=== PATIENT | female | born 1945 | race Caucasian/White ===

== ENCOUNTER 2023-01-02 14:38 | Outpatient (CLI) | payer MEDICARE, BC, SELFPAY ==
--- NOTE | 2023-01-02 15:20 | CRLHL7_ITS ---
For Patients: As a result of the Cures Act, medical imaging exams and procedure reports are released immediately into your electronic medical record. You may view this report before your referring provider. If you have questions, please contact your health care provider. BILATERAL SCREENING MAMMOGRAM WITH COMPUTER-AIDED DETECTION AND TOMOSYNTHESIS TECHNIQUE: CC and MLO views were obtained. These mammographic images have been obtained using full-field digital technique. These mammographic images were interpreted with the benefit of computer-aided detection. Breast tomosynthesis was used in this interpretation. COMPARISON FILM: 09/18/21, 08/21/20, 07/30/19. FINDINGS: There are scattered areas of fibroglandular density. IMPRESSION: There is no radiographic evidence for malignancy. ASSESSMENT: BI-RADS Category 2: Benign RECOMMENDATION: Routine screening mammogram in 1 year. A lay language report of this examination will be provided to the patient. EVA GILLIS M.D. Diagnostic/Nuclear Medicine Radiologist [email or web address] RAVEN:[email or web address] Transcribed: 01/03/2023, 1:[address]/Dictated by: Eva Gillis MD @ 01/03/2023 8:43:00 AM (Electronically Signed)
== END 2023-01-02 14:39 | disposition home or self-care (01) ==
LOC: MAMMO 14:43
PROVIDERS: PCP Family Medicine; Visit Provider Family Medicine
DX: Z12.31 Encounter for screening mammogram for malignant neoplasm of breast (principal)
CPT/HCPCS: 77063; 77067

== ENCOUNTER 2023-05-27 06:06 | Day surgery (SDC) | payer MEDICARE, BC, SELFPAY ==
[2023-05-27] VITALS (9 sets, daily range): BP systolic 136–177; BP diastolic 70–80; PULSE 58–96; RESP 16; TEMP 36.2–36.5; O2SAT 96–99; BMI 31.9
--- NOTE | 2023-05-27 06:28 | SUR.PREOP ---
OPERATIVE HAND WIPED WITH CHG WIPES IN PRE-OP.
--- NOTE | 2023-05-27 07:41 | PM.ORPRC ---
Procedure Note Date of procedure: 05/27/23 Procedure: Preop diagnosis: Left hand middle finger stenosing tenosynovitis Postop diagnosis: Left hand middle finger stenosing tenosynovitis Procedure: Left hand middle finger A1 jennifer release Anesthesia: Local Surgeon: Frankie Randolph MD orthopedic physician assistant: CHERIE Wright EBL: 0 mL Complications: None Specimens: None Drains: None Preoperative antibiotics: None Indications: The patient has a history of left upper extremity middle finger painful catching and locking. Despite appropriate non operative management including flexor tendon sheath corticosteroid injections they continue to have symptoms. Operative intervention was recommended. The risks, benefits alternatives and expected outcomes were discussed in detail. These included but were not limited to: Infection, bleeding, injury to blood vessel or nerve, venous thromboembolism. All questions were answered to their satisfaction. The patient was placed supine on the operating room table. Local anesthesia was established with 0.5% Marcaine without epinephrine and 2% lidocaine without epinephrine. The hand was prepped and draped in usual sterile fashion. The limb was elevated the forearm pneumatic tourniquet was inflated to 250 mm of mercury. A transverse incision was made centered over the base of the middle finger between the proximal and distal palmar creases. Subcutaneous dissection was taken through the palmar fascia to the flexor tendons with the tenotomy scissors. The A1 jennifer was released with the 15 blade and a tenotomy scissors. Active flexion and extension of the finger shows no catching or locking, no bowstringing of the flexor tendons. The wound was closed with interrupted nylon sutures. A dry dressing was applied the tourniquet was released. Sponge and needle counts were correct x 2. The patient tolerated the procedure well, there were no apparent complications. They were sent to same day surgery in satisfactory condition. Plan: Use of the hand as tolerates. Discontinue the intraoperative dressing on postoperative day 3 and may get the wound wet as tolerates. Follow up in the office in 2 weeks for a wound check and suture removal.
== END 2023-05-27 08:14 | disposition home or self-care (01) ==
PROVIDERS: PCP Family Medicine; Visit Provider Orthopaedic Surgery
PROC: (CPT 26055; principal; 2023-05-27 07:15)
DX: M65.332 Trigger finger, left middle finger (principal); M65.842 Other synovitis and tenosynovitis, left hand
CPT/HCPCS: 26055

== ENCOUNTER 2024-03-31 11:04 | Outpatient (CLI) | payer MEDICARE, BC, SELFPAY ==
--- NOTE | 2024-03-31 10:45 | CRLHL7_ITS ---
For Patients: As a result of the Century Cures Act, medical imaging exams and procedure reports are released immediately into your electronic medical record. You may view this report before your referring provider. If you have questions, please contact your health care provider. BILATERAL SCREENING MAMMOGRAM WITH COMPUTER-AIDED DETECTION AND TOMOSYNTHESIS TECHNIQUE: CC and MLO views were obtained. These mammographic images have been obtained using full-field digital technique. These mammographic images were interpreted with the benefit of computer-aided detection. Breast Tomosynthesis was used in this interpretation. COMPARISON FILM: 01/02/23, 09/18/21, 08/21/20. FINDINGS: There are scattered areas of fibroglandular density IMPRESSION: There is no radiographic evidence for malignancy. ASSESSMENT: BI-RADS Category 1: Negative RECOMMENDATION: Routine screening mammogram in 1 year. A lay language report of this examination will be provided to the patient. Neptali Fagan M.D. Diagnostic Radiologist [email or web address] ELKIN/Dictated by: Neptali Fagan MD @ 03/31/2024 12:56:00 PM (Electronically Signed)
--- OUTSIDE RECORDS SUMMARY | 2024-03-31 11:07 | XMS_ITS | Clinical Summary ---
Author Organization [facility] Address [place], [place] [address] Care Team Providers Care Office Technologist Name Role Phone Virgil Pineda MD Primary Care Provider Allergies Active Allergy Reactions Criticality Noted Date Comments Hydrochlorothiazide Angioedema High 06/03/2018 Clopidogrel Edema 12/29/2023 Lip swelling Medications Medication Sig Dispensed Refills Start Date End Date Status vitamin a-vitamin c-vitamin e-minerals (VISION FORMULA) tablet Take 1 tablet by mouth once daily. Active cholecalciferol (VITAMIN D3) 2,000 unit capsule Take 1 capsule by mouth once daily. 0 02/25/2014 Active acetaminophen (TYLENOL EXTRA STRGTH) 500 mg tabletIndications :Acute maxillary sinusitis, recurrence not specified Take 1 tablet by mouth. Max acetaminophen dose: 4000mg in 24 hrs. 0 11/10/2016 Active nystatin powder (MYCOSTATIN) powderIndications :Moniliasis, cutaneous Apply 1 Strip topically to affected area(s) 3 times daily. 60 g 2 06/28/2019 Active CPAPIndications:O bstructive sleep apnea She needs CPAP supplies, not a machine. Needs mask, tubing, etc. 1 Each 08/01/2021 Active hydrocortisone 1 % creamIndications: Lip swelling Apply topically to affected area(s) 2 times daily. To apply externally on the outer lip twice daily 35 g 1 01/03/2022 Active meclizine (ANTIVERT) 25 mg tabletIndications :Vestibular dysfunction, unspecified laterality Take 1 Tablet (25 mg) by mouth every 8 hours if needed (vestibular dysfunction). 30 tablet. 1 03/24/2022 Active metroNIDAZOLE 0.75 % cream APPLY TO ENTIRE FACE 1-2X DAILY 12/30/2022 Active triamcinolone (ARISTOCORT; KENALOG) 0.1 % cream APPLY 1-2X DAILY TO AFFECTED AREA UNDER THE BREASTS AND ABDOMINAL FOLD. APPLY FOR 2 WEEKS THEN TAKE 2 WEEKS OFF. REPEAT NEEDED FOR FLARES 12/30/2022 Active atenoloL (TENORMIN) 50 mg tabletIndications :Essential hypertension Take 1 Tablet (50 mg) by mouth once daily. 90 Tablet 3 12/29/2023 Active furosemide (LASIX) 20 mg tabletIndications :Essential hypertension Take 1 Tablet (20 mg) by mouth every morning. 90 Tablet 3 12/29/2023 Active simvastatin (ZOCOR) 40 mg tabletIndications :Hypercholesterol emia Take 1 Tablet (40 mg) by mouth at bedtime. 90 Tablet 3 12/29/2023 Active losartan (COZAAR) 50 mg tabletIndications :Essential hypertension Take 1 Tablet (50 mg) by mouth once daily. 90 Tablet 3 12/29/2023 Active aspirin chewable 81 mg chewable tablet Chew 1 Tablet (81 mg) by mouth once daily with a meal. 03/08/2024 Active aspirin enteric coated (ECOTRIN) 325 mg tablet Take 1 tablet by mouth once daily with a meal. 0 11/17/2017 4 Discontinu ed(*Med complete/R egimen complete/L evel of care change) Active Problems Problem Noted Date Diagnosed Date History of transient ischemic attack (TIA) 03/08 Overview: 11/14/2017 Bilateral lower extremity edema 03/08/2024 Overview: lasix daily Hearing loss, bilateral 03/08/2024 Overview: wearing hearing aids ACP (advance care planning) 11/17/2019 Overview: Health Care Directive completed and scanned. See document dated 11/08/2019. Sleep apnea 12/09/2011 Overview: wearing CPAP Hypertension 12/09/2011 Obesity 12/09/2011 Chest pain 12/09/2011 Overview: -Stress echocardiogram 10/30/2011 Exercised 5 minutes and 55 seconds, stopped secondary to chest pressure No evidence of ischemia, post exercise images EF 65% Hyperlipidemia 10/22/2011 GERD (gastroesophageal reflux disease) 1 Knee joint replacement by other means 05/01/2007 half-way (current) use of anticoagulants 2006 Resolved Problems Problem Noted Date Diagnosed Date Resolved Date Headache(784.0) 12/25/2006 03/08/2024 Encounter for screening colonoscopy 03/08/2024 Encounters Date Type Department Care Team Description 03/08/2024 8:20 AM CDT Preop Visit [address] [id number] Valencia Wing NP Pre-Op Exam 03/08/2024 Travel from Last 3 Months Immunizations Name Administration Dates Next Due Influenza Virus, Unspecified 08/03/2023 Influenza, High-dose Inactivated 08/16/2019,08/03 Influenza, High-dose Quadrivalent Inactivated Influenza, Inactivated AIIV4 (Age 65+ Years) Preserv Free 08/12/2022,08/23/2021 Influenza, Inactivated IIV3 (Age 65+ Years) Preserv Free 08/25/2018 Pneumococcal Poly,23-Valent (Pneumovax) 05/09/20 17 Pneumococcal conj 13-Valent (Prevnar 13) 011 Td (Age >=7 Years) 05/06/1996 Td, Preservative Free (age >= 7 Years) 7 Tdap 02/23/2019 Family History Medical History Relation Name Comments No Known Problems Brother 1 No Known Problems Brother 2 No Known Problems Brother 3 No Known Problems Daughter Other Father ALZHEIMER'S No Known Problems Half-Brother No Known Problems Half-Sister No Known Problems Maternal Aunt Cancer Maternal Grandfather STOMACH Cancer Maternal Grandmother MELANOM A No Known Problems Maternal Uncle Cancer Mother LEIOMTOSARCOMA No Known Problems Other Heart Disease Paternal Aunt Cancer Paternal Grandfather SKIN Cancer Paternal Grandmother GALLBLA DDER No Known Problems Paternal Uncle No Known Problems Sister 1 No Known Problems Sister 2 No Known Problems Sister 3 No Known Problems Sister 4 Cancer Sister 5 THYROID, UTERIN E No Known Problems Son 1 No Known Problems Son 2 Cancer-breast No Family History Relation Name Status Comments Brother 1 Alive Brother 2 Alive Brother 3 Alive Daughter Alive Father Half-Brother Half-Sister Maternal Aunt Maternal Grandfather Maternal Grandmother Maternal Uncle Mother Other Paternal Aunt Paternal Grandfather Paternal Grandmother Paternal Uncle Sister 1 Alive Sister 2 Alive Sister 3 Alive Sister 4 Alive Sister 5 Son 1 Alive Son 2 Alive Social History Tobacco Use Types Packs/Day Years Used Date Smoking Tobacco: Never Passive Smoke Exposure: Yes Smokeless Tobacco: Never Tobacco Cessation:Counseling Given: Not Answered Comments: smokes Alcohol Use Standard Drinks/Week Comments Not Currently 0 (1 standard drink = 0.6 oz pur e alcohol) PHQ-2 Answer Date Recorded PHQ-2 TOTAL SCORE 0 12/29/2023 Social Connections Answer Date Recorded Frequency of Communication with Friends and Fami ly 0 09/13/2023 Financial Resource Strain Answer Date R ecorded Difficulty of Paying Living Expenses 3 09/13/2023 Difficulty of Paying Living Expenses Not on file 09/13/2023 Food Insecurity Answer Date Recorded Worried About Running Out of Food in the Last Ye ar 1 09/13/2023 Transportation Needs Answer Date Record ed Lack of Transportation (Medical) 1 09/13/2023 Housing Stability Answer Date Recorded Unable to Pay for Housing in the Last Year 1 09/13/2023 Sex and Gender Information Value Date Recorded Sex Assigned at Not on file Gender Identity Not on file Sexual Orientation Not on file Obstetrics History Para Term AB IAB SAB Ectopic Multiple Livin g Live Births 4 3 1 1 3 Date Outcome GA Total Labor Labor/2nd/3rd Weight Sex Delivery Anes PTL Natalie A1 A5 Name Cl in SAB Para Para Para Last Filed Vital Signs Vital Sign Reading Time Taken Comments Blood Pressure 126/68 03/08/2024 8:27 AM CDT Pulse 66 03/08/2024 8:27 AM CDT Temperature 36.3 ??C (97.3 ??F) 09/13/2023 1 0:47 AM DRAWER IN STITCH BONDING MACHINE Respiratory Rate 16 09/13/2023 10:4 7 AM DRAWER IN STITCH BONDING MACHINE Oxygen Saturation 98% 12/29/2023 8:50 AM DRAWER IN STITCH BONDING MACHINE Inhaled Oxygen Concentration - - Weight 89.7 kg (197 lb 11.2 oz) 03/08/2024 8:27 AM CDT Height 163.8 cm (5' 4.5) 12/29/2023 8:50 AM DRAWER IN STITCH BONDING MACHINE Body Mass Index 33.41 12/29/2023 8:50 AM DRAWER IN STITCH BONDING MACHINE Plan of Treatment Health Maintenance Due Date Last Done Comments Zoster (shingles) series for age 50+ (1 of 2) 1996 COVID-19 vaccine series ( season) 2023 10/08/2021, 01/13/2021, 12/23/2020 Influenza for age 65+ 07/04/2024 08/03/2023 , 08/12/2022, 08/23/2021, Additional history exists BMI (ht and wt on same day) for age 18+ 12/29/2024 12/29/2023, 10/18/2022, 02/26/2022, Additional history exists Depression screening for age 12+ 12/29/2024 12/29/2023, 10/18/2022, 10/17/2021, Additional history exists Medicare Wellness for age 65+ 12/29/2024, 10/18/2022, 10/17/2021, Additional history exists Tetanus booster 02/23/2029 02/23/2019, 04/03, 05/06/1996 DEXA/DXA scan for age 65+ Completed 2010, 10/22/2011, 12/31/2006 Hepatitis C screening for ag e 18-79 Completed 04/11/2015 Pneumococcal series for age 65+ Completed 05/09/2017, 10/22/2011, 10/22/2011 (Completed outside of [facility]) Tdap Completed 02/23/2019 Procedures Procedure Name Priority Date/Time Associated Diagnosis Comments ANTI HCV Routine 04/11/2015 9:01 AM CDT Need for hepatitis C screening test XR DXA BONE DENSITY 2 SITES AXIAL Routine 10/22/2011 10:10 AM DRAWER IN STITCH BONDING MACHINE Post hysterectomy menopause from Last 3 Months or Most Recently Relevant to Health Maintenance Results * ANTI HCV [96114.2] (04/11/2015 9:01 AM CDT) HEPATITIS C ANTIBODY Non-Reacti ve Non-Reacti ve 04/11/2015 3:45 PM CDT [facility] Blood specimen (specimen) BLOOD SPECIMEN / Unknown Venipuncture / Unknown 04/11/2015 9:01 AM CDT 04/11/2015 9:02 AM CDT Narrative [facility] - 04/11/2015 3:45 PM CDT Antibodies to HCV not detected; does not exclude the possibility of exposure to HCV. Pieter Patterson MD SEND OUTS [facility] [address] [place] [address], [place] * (ABNORMAL) XR DEXA BONE DENSITY 2 SITES (10/22/2011 10:10 AM DRAWER IN STITCH BONDING MACHINE) Anatomical Region Laterality Modality Spine, HIPS, HIPL, HIPR Bone Den sitometry Narrative 10/23/2011 4:43 PM DRAWER IN STITCH BONDING MACHINE Please see scanned document for results of this study. Procedure Note Toya Levine MD - 10/23/2011 Please see scanned document for results of this study. Pieter Patterson MD DEXA from Last 3 Months or Most Recently Relevant to Health Maintenance Insurance Payer Benefit Plan / Group Subscriber ID Effective Dates Phone Address Type MEDICARE PART A - HB USE ONLY MEDICARE PART A HB ONLY [id number] 2011-Presen t ATTN: CLAIMS [address] [place] [address] MEDICARE PART A - HB USE ONLY MEDICARE PART A HB ONLY [id number] 2011-Presen t ATTN: CLAIMS [address] [place] [address] MEDICARE PART B - HB USE ONLY MEDICARE PART B HB ONLY [id number] 2011-Presen t ATTN: CLAIMS [address] [place] [address] MEDICARE PART B - HB USE ONLY MEDICARE PART B HB ONLY [id number] 2011-Presen t ATTN: CLAIMS [address] [place] [address] BL[employer] CROSS MR [facility] BLUE MR PB ONLY [id number] 2016-[place] [address] [address] [place] [address] [place] CROSS MR MR [facility] [id number] 2013-P resen t [address] [place] [phone] [facility] BLUE HB ONLY [id number] 2016-Presen t [address] [address] [place] [address] Advance Directives Documents on File Type Date Recorded Patient Enterprise Account Manager Expl anation Healthcare Directive 10/04/2020 1:39 PM Healthcare Directive 11/11/2019 12:00 AM 11/08/2019 * Full Code (Latest Code Status on File) Date Activated Date Inactivated Comments 03/05/2022 8:19 AM 03/05/2022 1:15 PM Question Answer Comments Code Status Discussion: Discussed * Full Code Date Activated Date Inactivated Comments 12/09/2011 9:56 AM 12/09/2011 4:00 PM Care Teams Office Technologist Relationship Specialty Start Date End Date Virgil Pineda MD [address] [place] [address] PCP - General Family Practice 09/23/22
== END 2024-03-31 11:05 | disposition home or self-care (01) ==
LOC: MAMMO 11:05
PROVIDERS: PCP Family Medicine; Visit Provider Family Medicine
DX: Z12.31 Encounter for screening mammogram for malignant neoplasm of breast (principal)
CPT/HCPCS: 77063; 77067

== ENCOUNTER 2025-05-18 13:29 | Outpatient (CLI) | payer MEDICARE, BC, SELFPAY ==
--- NOTE | 2025-05-18 14:00 | CRLHL7_ITS ---
For Patients: As a result of the Century Cures Act, medical imaging exams and procedure reports are released immediately into your electronic medical record. You may view this report before your referring provider. If you have questions, please contact your health care provider. INDICATION: BILATERAL SCREENING MAMMOGRAM, ASYMPTOMATIC 80 Y/O FEMALE COMPARISON: 03/31/2024, 01/02/2023, 09/18/2021 TECHNIQUE: Digital mammogram in CC and MLO projections including computer-aided detection (CAD) and tomosynthesis. BREAST COMPOSITION: There are scattered areas of fibroglandular density. FINDINGS: No suspicious findings. ASSESSMENT: BI-RADS 1 Negative RECOMMENDATION: Annual screening mammogram. A lay language report of this examination will be provided to the patient. Dictated by: Neptali Fagan MD @ 05/19/2025 13:06:45 (Electronically Signed)
== END 2025-05-18 13:30 | disposition home or self-care (01) ==
LOC: MAMMO 13:31
PROVIDERS: PCP Family Medicine; Visit Provider Family Medicine
DX: Z12.31 Encounter for screening mammogram for malignant neoplasm of breast (principal)
CPT/HCPCS: 77063; 77067